=== PATIENT | male | born 1950 | race Caucasian/White ===

== ENCOUNTER 2021-05-02 06:48 | Day surgery (SDC) | payer MEDICARE, BC ==
[2021-04-30 08:50] LABS: BASOPHILS % (AUTO) 0.8 % (0-1); EOSINOPHILS # (AUTO) 0.2 X10'3 (0-0.9); EOSINOPHILS % (AUTO) 3.9 % (0-6); HEMATOCRIT 44.1 % (42.0-52.0); LYMPHOCYTES # (AUTO) 1.2 X10'3 (1.1-4.8); LYMPHOCYTES % (AUTO) 26.9 % (21-51); MEAN CORPUSCULAR HEMOGLOBIN 30.4 PG (27.0-31.0); MEAN CORPUSCULAR VOLUME 89.5 FL (78-98); MEAN PLATELET VOLUME 7.4 FL (7.4-10.4); MONOCYTES # (AUTO) 0.3 X10'3 (0-0.9); MONOCYTES % (AUTO) 7.1 % (2-12); NEUTROPHILS # (AUTO) 2.8 X10'3 (1.8-7.7); NEUTROPHILS % (AUTO) 61.3 % (42-75); PLATELET COUNT 120 X10'3 (140-440); RED BLOOD COUNT 4.93 X10'6 (4.70-6.10); RED CELL DISTRIBUTION WIDTH 13.2 % (11.5-14.5); WHITE BLOOD COUNT 4.5 X10'3 (4.5-11.0)
[2021-04-30 08:56] LABS: PARTIAL THROMBOPLASTIN TIME 26 SECONDS (22-32)
[2021-04-30 09:16] LABS: ALANINE AMINOTRANSFERASE 40 U/L (12-78); ALBUMIN 3.5 G/DL (3.4-5.0); ALBUMIN/GLOBULIN RATIO 1.1 (1.1-1.5); ALKALINE PHOSPHATASE 83 IU/L (46-116); ANION GAP 10 (8-16); ASPARTATE AMINO TRANSFERASE 16 U/L (10-37); BILIRUBIN,TOTAL 0.6 MG/DL (0.1-1.0); BLOOD UREA NITROGEN 16 MG/DL (7-18); BUN/CREATININE RATIO 14.8 (5.4-32.0); CALCIUM 8.6 MG/DL (8.5-10.1); CHLORIDE 106 MMOL/L (99-107); CREATININE 1.08 MG/DL (0.60-1.10); GLUCOSE 124 MG/DL (70-104); POTASSIUM 4.4 MMOL/L (3.5-5.1); SODIUM 142 MMOL/L (135-145); TOTAL CARBON DIOXIDE 25.8 MMOL/L (24-32); TOTAL PROTEIN 6.6 G/DL (6.4-8.2); eGFR 67 ML/MIN
[2021-05-02] VITALS (11 sets, daily range): BP systolic 111–141; BP diastolic 51–72
[~2021-05-02] VITALS: Ht 172.7 cm; Wt 87.3 kg
[2021-05-02] MEDS ORDERED: LORazepam 0.5 MG tablet PO PRN (07:05)
[2021-05-02] MEDS ORDERED: normal saline 1,000 ML IV SCH (07:05)
[2021-05-02] MEDS ORDERED: diphenhydrAMINE 25mg capsule PO PRN (07:05)
[2021-05-02] MEDS ORDERED: nitroGLYCERIN 0.4mg SUBLingual tab SL PRN (07:05)
[2021-05-02] MEDS ORDERED: NITR0.4T48 SL (08:48)
[2021-05-02] MEDS ORDERED: OMEG-82 PO (08:48)
[2021-05-02] MEDS ORDERED: AMLO2.5T5 PO (08:48)
[2021-05-02] MEDS ORDERED: MULT-1085 PO (08:48)
[2021-05-02] MEDS ORDERED: midazolam 1 mg/ML 2ml injection ONE ×2 (09:27→10:01)
[2021-05-02] MEDS ORDERED: LIDOcaine 1% (10mg/ml)w/preservative injection 20ml MDV ONE (09:27)
[2021-05-02] MEDS ORDERED: iohexol 350MG/ML 100ml bottle IV ONE (09:27)
[2021-05-02] MEDS ORDERED: iohexol 350 MG/ML 50ML vial IV ONE (09:27)
[2021-05-02] MEDS ORDERED: fentaNYL/PF 50MCG/1 ML 2ML syringe ONE (09:28)
[2021-05-02] MEDS ORDERED: proCHLORperazine 10 MG/2 ml inj ONE (09:36)
[2021-05-02] MEDS ORDERED: proCHLORperazine 10 MG/2 ml inj IV PRN (10:45)
[2021-05-02] MEDS ORDERED: HYDROcodone/acetaminophen 5mg/325mg tablet PO PRN (10:45)
[2021-05-02] MEDS ORDERED: OXAZEpam 15mg capsule PO PRN (10:45)
[2021-05-02] MEDS ORDERED: ondansetron/PF 4mg/2ml inj IV PRN (10:45)
[2021-05-02] MEDS ORDERED: normal saline 1000ml 1,000 ML IV SCH (10:45)
[2021-05-02] MEDS ORDERED: acetaminophen 325mg tablet PO PRN (10:45)
[2021-05-02] MEDS ORDERED: HYDROcodone/acetaminophen 10/325mg tab PO PRN (10:45)
== END 2021-05-02 17:00 | disposition home or self-care (01) ==
LOC: SSTAY O 06:48
PROVIDERS: ATTEND Internal Medicine Cardiovascular Disease
DX: R94.39 Abnormal result of other cardiovascular function study (principal); I25.119 Atherosclerotic heart disease of native coronary artery with unspecified angina pectoris; E78.5 Hyperlipidemia, unspecified; K21.9 Gastro-esophageal reflux disease without esophagitis; I10 Essential (primary) hypertension; D69.6 Thrombocytopenia, unspecified; Z79.01 Long term (current) use of anticoagulants; Z88.8 Allergy status to other drugs, medicaments and biological substances; Z88.0 Allergy status to penicillin; Z87.891 Personal history of nicotine dependence; Z79.899 Other long term (current) drug therapy
CPT/HCPCS: 36415; 80053; 85025; 85610; 85730; 93005; 93458; 99152; C1760; C1769; J0780; J1644; J2001; J2250; J3010; J7030; Q0163; Q9967; 99153; A4620; A6258